=== PATIENT | female | born 1980 | race Hispanic/Latino ===

== ENCOUNTER → 2017-11-03 | Outpatient (CLI) | payer BC ==
[~2017-11-03] MED LIST: ATORVASTATIN CA10 MG PO; CELEBREX100 MG PO; CYMBALTA30 MG PO; EDARBYCLOR 40-1 EAC1 PO; FERROUS SU220 MG/5 M PO; GAMMAGARD LIQUI IV; HYDROXYCHLOROQ200 MG PO; LABETALOL HCL100 MG PO; MEDROL4 MG PO; ORENCIA125 MG/1 M SC; SPIRONOLACTONE25 MG PO; TIKOSYN250 MCG PO; VITAMIN D5000 UNIT PEG
--- NOTE | 2017-11-03 15:53 | Diagnostic Imaging Report ---
EXAM: CT Chest WITHOUT contrast 11/03/2017 1:38 PM INDICATION: Cough for 2 weeks. COMPARISON: None TECHNIQUE: Chest was scanned utilizing a multidetector helical scanner from the lung apex through the level of the adrenal glands without administration of IV contrast. Absence of intravenous contrast decreases sensitivity for detection of lymphadenopathy and vascular pathology. Coronal and sagittal reformations were obtained. Routine protocol was performed. IV CONTRAST: None RADIATION DOSE: Total DLP: 506.36 mGy*cm Estimated effective dose: (DLP x 0.014 x size factor) mSv COMPLICATIONS: None FINDINGS: LINES/ TUBES: None. LUNGS AND AIRWAYS: Mild biapical pleural-parenchymal scarring. No focal consolidation masses or nodules. Airways are normal. PLEURA: The pleural spaces are clear. HEART AND MEDIASTINUM: The thyroid gland is normal. No mediastinal, hilar or axillary lymphadenopathy. The heart is normal in size.. There is no pericardial effusion. UPPER ABDOMEN: Limited non-contrast views of the upper abdomen show no abnormality within the visualized liver, spleen, pancreas, or kidneys. The adrenal glands are normal. BONES: No acute osseous abnormality. SOFT TISSUES: Unremarkable. IMPRESSION: No acute thoracic abnormality. No abnormality identified to explain shortness of breath. Signed by: Dr. Marguerite Fajardo M.D. on 11/03/2017 3:49 PM
--- NOTE | 2017-11-04 07:00 | Diagnostic Imaging Report ---
EXAMINATION: CT of the face HISTORY: Acute sinusitis, cough for the last 2 weeks, asthma COMPARISON: None available TECHNIQUE: Multidetector helical axial images were acquired through the face without contrast and were reconstructed in bone and soft tissue algorithms. Images were viewed in multiplanar format. FINDINGS: Bones: Unremarkable. Facial soft tissues: Unremarkable. Paranasal sinuses and drainage pathways: Minimal mucosal inflammatory thickening and partial opacification of the left posterior ethmoidal sinuses. Otherwise the frontal, remaining ethmoid all, maxillary and sphenoid sinuses are clear. The ostiomeatal units, fronto-nasal and spheno-ethmoidal recesses are clear. Orbits contents: Unremarkable. Nasal septum/nasal cavity: S-shaped, with dominant right superior and left inferior deviation. Hypertrophy of the inferior turbinates Anatomic variations: No significant anatomic variations. Dentition: No acute abnormality of the visualized teeth. IMPRESSION: 1. Minimal mucosal inflammatory thickening of the left posterior ethmoidal sinuses, otherwise the paranasal sinuses and drainage pathways are clear. 2. Nasal septal deviation as detailed above. 3. Hypertrophy of the inferior turbinates. Signed by: Dr. Sarah Rodriguez M.D. on 11/04/2017 6:56 AM
== END ==
LOC: CT 13:24
PROVIDERS: ATTEND Internal Medicine Pulmonary Disease
DX: R05 Cough (principal); J01.90 Acute sinusitis, unspecified
CPT/HCPCS: 70486; 71250

== ENCOUNTER 2018-01-26 18:14 | Emergency (ER) | payer BC ==
[~2018-01-26] VITALS: Ht 160 cm; Wt 59.0 kg
--- OUTSIDE RECORDS SUMMARY | 2018-01-26 18:17 | XMS REPORT ---
Author Author [facility] Address Unknown Phone Unavailable Care Team Providers Care Public Employment Mediator Name Role Phone MARYA DELA CRUZ Unavailable Unavailable JARRETT REBOLLAR Unavailable Unavailable ROSEMARIE BAILEY Unavailable Unavailable Problems This patient has no known problems. Allergies, Adverse Reactions, Alerts This patient has no known allergies or adverse reactions. Medications This patient has no known medications. Results Test Description Test Time Test Comments Text Results Atomic Results Result Comments CT CHEST WO [place] [address] Patient Name: NIDHI PAZ MR #: [id number] : 1980 Age/Sex: 37/F Req #: [id number] Adm Physician: Ordered by: MARYA DELA CRUZ MD Report #: [id number] Location: CT Room/Bed: Procedure: [id number] CT/CT CHEST WO Exam Date: 11/03/17 Exam Time: 1340 REPORT STATUS: Signed EXAM: CT Chest WITHOUT contrast 11/03/2017 1:38 PM INDICATION: Cough for 2 weeks. COMPARISON: None TECHNIQUE: Chest was scanned utilizing a multidetector helical scanner from the lung apex through the level of the adrenal glands without administration of IV contrast. Absence of intravenous contrast decreases sensitivity for detection of lymphadenopathy and vascular pathology. Coronal and sagittal reformations were obtained. Routine protocol was performed. IV CONTRAST: None RADIATION DOSE: Total DLP: 506.36 mGy*cm Estimated effective dose: (DLP x 0.014 x size factor) mSv COMPLICATIONS: None FINDINGS: LINES/ TUBES: None. LUNGS AND AIRWAYS: Mild biapical pleural-parenchymal scarring. No focal consolidation masses or nodules. Airways are normal. PLEURA: The pleural spaces are clear. HEART AND MEDIASTINUM: The thyroid gland is normal. No mediastinal, hilar or axillary lymphadenopathy. The heart is normal in size.. There is no pericardial effusion. UPPER ABDOMEN: Limited non-contrast views of the upper abdomen show no abnormality within the visualized liver, spleen, pancreas, or kidneys. The adrenal glands are normal. BONES: No acute osseous abnormality. SOFT TISSUES: Unremarkable. IMPRESSION: No acute thoracic abnormality. No abnormality identified to explain shortness of breath. Signed by: Dr. Marguerite Hilton M.D. on 11/03/2017 3:49 PM Dictated By: ISA HILTON MD, MD [id number] Transcribed By: LAYTON on 11/03/17 1547 COPY TO: MARYA DELA CRUZ MD CT MAXIO FAC/PARANAS WO [place] [address] Patient Name: NIDHI PAZ MR #: [id number] : 1980 Age/Sex: 37/F Req #: [id number] Adm Physician: Ordered by: MARYA DELA CRUZ MD Report #: [id number] Location: CT Room/Bed: Procedure: [id number] CT/CT MAXIO FAC/PARANAS WO Exam Date: 11/03/17 Exam Time: 1340 REPORT STATUS: Signed EXAMINATION: CT of the face HISTORY: Acute sinusitis, cough for the last 2 weeks, asthma COMPARISON: None available TECHNIQUE: Multidetector helical axial images were acquired through the face without contrast and were reconstructed in bone and soft tissue algorithms. Images were viewed in multiplanar format. FINDINGS: Bones: Unremarkable. Facial soft tissues: Unremarkable. Paranasal sinuses and drainage pathways: Minimal mucosal inflammatory thickening and partial opacification of the left posterior ethmoidal sinuses. Otherwise the frontal, remaining ethmoid all, maxillary and sphenoid sinuses are clear. The ostiomeatal units, fronto- nasal and spheno-ethmoidal recesses are clear. Orbits contents: Unremarkable. Nasal septum/nasal cavity: S-shaped, with dominant right superior and left inferior deviation. Hypertrophy of the inferior turbinates Anatomic variations: No significant anatomic variations. Dentition: No acute abnormality of the visualized teeth. IMPRESSION: 1. Minimal mucosal inflammatory thickening of the left posterior ethmoidal sinuses, otherwise the paranasal sinuses and drainage pathways are clear. 2. Nasal septal deviation as detailed above. 3. Hypertrophy of the inferior turbinates. Signed by: Dr. Татьяна Rodriguez M.D. on 11/04/2017 6:56 AM Dictated By: ТАТЬЯНА RODRIGUEZ MD 5 Transcribed By: LAYTON on 11/04/17655 COPY TO: MARYA DELA CRUZ MD MRI KNEE LEFT WO [place] [address] Patient Name: NIDHI PAZ MR #: [id number] : 1980 Age/Sex: 36/F Req #: [id number] Adm Physician: Ordered by: REBOLLAR ANDREW DO Report #: [id number] Location: MRI Room/Bed: Procedure: [id number] MRI/MRI KNEE LEFT WO Exam Date: 08/24/17 Exam Time: 1638 REPORT STATUS: Signed TECHNIQUE: Magnetic resonance imaging of the LEFT KNEE was performed WITHOUT injected contrast. HISTORY: Knee pain COMPARISON: None available. FINDINGS: LIGAMENTS AND TENDONS: ACL: Intact PCL: Intact Collateral ligaments: Intact Iliotibial band: Unremarkable Popliteal tendon: Intact Extensor mechanism: Quadriceps and patellar tendons intact. Mild edema in Hoffa's fat. JOINT: Menisci: Medial: Undersurface fraying of the body and posterior horn without discrete tear Lateral: Intact without tear. Articular Cartilage: Medial Compartment: Partial thickness cartilage loss Lateral Compartment: Partial thickness cartilage loss Patellofemoral Compartment: Partial thickness cartilage loss Joint Fluid: The amount of fluid within the joint is within physiologic limits. BONE: No focal or infiltrative bone marrow replacing abnormality. No acute fracture. SOFT TISSUES: Otherwise, unremarkable. IMPRESSION: Medial meniscus undersurface fraying without discrete tear. Mild tricompartmental cartilage loss. Signed by: Dr. Jarrett Nino M.D. on 7:16 AM Dictated By: JARRETT NINO MD 5 Transcribed By: LAYTON on 08/25/17715 COPY TO: JARRETT REBOLLAR DO MRI SHOULDER LEFT WO [place] [address] Patient Name: NIDHI PAZ MR #: [id number] : 1980 Age/Sex: 36/F Req # : [id number] Adm Physician: Ordered by: REBOLLAR ANDREW DO Report #: [id number] Location: MRI Room/Bed: Procedure: [id number] MRI/MRI SHOULDER LEFT WO Exam Date: 08/24/17 Exam Time: 1615 REPORT STATUS: Signed TECHNIQUE: Magnetic resonance imaging of the LEFT SHOULDER was performed WITHOUT injected contrast. COMPARISON: None available. HISTORY: Left shoulder pain FINDINGS: MUSCLES AND TENDONS: Rotator Cuff: Tendons: Supraspinatus: Intact Infraspinatus: Intact Teres Minor: Intact Subscapularis: Intact Muscles: No focal muscle atrophy. Biceps Tendon: The long head of the biceps tendon is intact and within the intertubercular groove. GLENOHUMERAL JOINT: Glenoid Labrum: No displaced tear. Articular Cartilage: No focal defect. AC JOINT AND ACROMION: Minimal hypertrophic degenerative changes of the acromioclavicular joint. Mild downsloping without spur formation. BONE: No specific evidence of a focal or infiltrative bone marrow replacing abnormality. No acute fracture. SOFT TISSUES: Otherwise, the soft tissues appear unremarkable. IMPRESSION: Intact rotator cuff and labrum Signed by: Dr. Jarrett Nino M.D. on 08/25/2017 7:18 AM Dictated By: JARRETT NINO MD 7 Transcribed By: ALYTON on 08/25/17717 COPY TO: JARRETT REBOLLAR DO MRI BRAIN WOW [place] [address] Patient Name: NIDHI PAZ MR #: [id number] : 1980 Age/Sex: 36/F Req #: [id number] Adm Physician: Ordered by: ROSEMARIE BAILEY M.D. Report #: [id number] Location: MRI Room/Bed: Procedure: [id number] MRI/MRI BRAIN WOW Exam Date: 06/18/17 Exam Time : 0805 REPORT STATUS: Signed History: Possible MS. Arm and leg pain Comparison studies: MRI of the cervical and lumbar spine Technique: Pre- contrast: Sagittal T2; axial T1-IR, MPGR, DWI, T2 FLAIR Post-contrast: axial and coronal T1. Intravenous contrast: 6 cc of Gadavist. Findings: Scalp: No abnormal signal. No masses. Bone marrow: Normal in signal intensity. Brain sulci: Appropriate for age. Ventricles: Normal in size . No hydrocephalus. Extra-axial: No masses, fluid collections or hemorrhage. Parenchyma: T2/FLAIR cortical subcortical hyperintensity at the right inferior temporal gyrus/anterior insula with associated volume loss and without enhancement. Few punctate T-2/flair hyperintensities of the periventricular and deep matter, nonspecific. No masses, hemorrhage or acute vascular insults. No enhancing abnormalities. Suprasellar region: No abnormalities. Craniocervical junction: No abnormalities. Patent foramen magnum. No Chiari one malformation.. Vessels: Normal flow-voids in the arteries and sinuses. Incidental findings: None IMPRESSION: 1. Focal cortical subcortical encephalomalacia at the left inferior frontal gyrus/anterior insula, secondary to remote insult. 2. Nonspecific punctate T-2/flair hyperintensities of the supra tentorial white matter, this could be seen in chronic migraines, early demyelination or nonspecific vasculitis. No typical appearance for multiple sclerosis. Signed by: DR Daniel Winn M.D. on 06/18/2017 2:29 PM Dictated By: DANIEL JEWELL MD 142 Transcribed By: LAYTON on 06/18/17 1429 COPY TO: ROSEMARIE BAILEY M.D. MRI SPINE CERVICAL WOW [place] [address] Patient Name: NIDHI PAZ MR #: [id number] : 1980 Age/Sex: 36/F Req #: [id number] Adm Physician: Ordered by: ROSEMARIE BAILEY M.D. Report #: [id number] Location: MRI Room/Bed: ____ Procedure: [id number] MRI/MRI SPINE CERVICAL WOW Exam Date: 06/02/17 Exam Time: 824 REPORT STATUS: Signed Examination: MRI SPINE CERVICAL WITHOUT AND WITH CONTRAST History: Left arm pain. Comparison studies: None Technique: Sagittal T1, T2 and IR, axial T2 and axial gradient echo; postcontrast axial and sagittal T1 fat-saturated. Intravenous contrast: 6mL Gadavist. Findings: Alignment: Normal lordosis. No scoliosis. Cervicomedullary junction: No abnormalities. Patent foramen magnum. Soft tissues: No T2 hyperintense inflammatory changes. Spinal cord: Normal in size and signal from the foramen magnum through T1. Vertebrae: No fractures, infection or neoplasm. Enhancement: No abnormal enhancement. Degenerative changes: C1-C2 through C4-C5: No abnormalities. C5-C6: Small central disc protrusion. No foraminal or canal stenosis. C6-C7 and C7-T1: No abnormalities. IMPRESSION: 1. Mild degenerative disc at C5-C6. 2. No foraminal or canal stenosis. Signed by: Dr. Brittaney Martinez M.D. on 06/02/2017 10:53 AM Dictated By: BRITTANEY WOLF MD 1053 Transcribed By: LAYTON on 06/02/17 1053 COPY TO: ROSEMARIE BAILEY M.D. MRI SPINE LUMBAR WOW [place] [address] Patient Name: NIDHI PAZ MR #: [id number] : 1980 Age/Sex: 36/F Req # : [id number] Adm Physician: Ordered by: ROSEMARIE BAILEY M.D. Report # : [id number] Location: MRI Room/Bed: Procedure: [id number] MRI/MRI SPINE LUMBAR WOW Exam Date: 06/02/17 Exam Time: 824 REPORT STATUS: Signed Examination: MRI SPINE LUMBAR WITHOUT AND WITH CONTRAST History: Right leg pain and numbness. Comparison studies: None Technique: Pre-contrast: Sagittal and axial T2 , sagittal T1 and IR, axial spin density oblique. Post contrast: Axial and sagittal fat saturated sequences. Intravenous contrast: 6 mL of Gadavist. Findings: Number of lumbar vertebral bodies:Five. Alignment: Normal lordosis. No scoliosis. Soft tissues: No T2 hyperintense inflammatory changes. Paraspinal muscles: No signal abnormalities. Well-preserved. No atrophic changes Lower thoracic cord: Normal in signal and morphology. The tip of the conus is at T12-L1. Cauda equina: No masses. No arachnoiditis. Enhancement: No abnormal enhancement. Vertebrae: No compression fractures, infection or neoplasm. Degenerative changes: L1-L2 through L5-S1: No abnormalities IMPRESSION: Normal contrast MRI of the lumbar spine. Signed by: Dr. Brittaney Martinez M.D. on 06/02/2017 10:49 AM Dictated By: BRITTANEY WOLF MD 1049 Transcribed By: LAYTON on 9 COPY TO: ROSEMARIE BAILEY M.D.
[2018-01-26] MEDS ORDERED: IBUPROFEN 600 MG TAB PO STA (18:32)
[2018-01-26] MEDS ORDERED: IBUPROFEN 600 MG TAB ONE (18:37)
[2018-01-26 19:02] LABS: CLARITY,URINE SL CLOUDY (CLEAR); COLOR,URINE YELLOW (YELLOW); LEUKOCYTE ESTERASE ,URINE TRACE (NEGATIVE); NITRITE,URINE NEGATIVE (NEGATIVE); PROTEIN,URINE DIPSTICK 1+ (NEGATIVE)
[2018-01-26 19:03] LABS: BILIRUBIN,URINE 1+ (NEGATIVE); KETONES,URINE 3+ (NEGATIVE); URINE UROBILINOGEN 4 mg/dL (0.2 - 1)
[2018-01-26 19:16] LABS: AMORPHOUS SEDIMENT,URINE MODERATE (FEW); BACTERIA,URINE MODERATE /HPF; EPITHELIAL CELLS,URINE MANY /LPF
--- NOTE | 2018-01-26 19:22 | Diagnostic Imaging Report ---
EXAMINATION: CHEST 2 VIEWS INDICATION: \S\fever \[id number] \S\1900 COMPARISON: Chest CT dated 11/03/2017 FINDINGS: PA and lateral views TUBES and LINES: None. LUNGS: Lungs are well inflated. Medial right lower lung field hazy opacification. PLEURA: No pleural effusion or pneumothorax. HEART AND MEDIASTINUM: The cardiomediastinal silhouette is unremarkable. BONES AND SOFT TISSUES: No acute osseous lesion. Soft tissues are unremarkable. UPPER ABDOMEN: No free air under the diaphragm. IMPRESSION: Medial right lower lung field hazy opacification, suspicious for right middle lobe pneumonia. Signed by: Dr. Kris Nina MD on 01/26/2018 7:18 PM
[2018-01-26] MEDS ORDERED: SODIUM CHLORIDE 0.9% 1000ML 1,000 ML IV STA ×3 (20:16→23:20)
[2018-01-26] MEDS ORDERED: CEFTRIAXONE SOD 1 GM VIAL IV SCH ×2 (20:30→20:45)
[2018-01-26 20:41] LABS: BASOPHILS % 0.7 % (0.0-1.0); HEMOGLOBIN 13.8 g/dL (12.0-16.0); LYMPHOCYTES # (AUTO) 0.6 (1.0-3.2); LYMPHOCYTES % 13.9 % (18.0-39.1); MEAN CORPUSCULAR HEMOGLOBIN 29.2 pg (28-32); MEAN CORPUSCULAR HGB CONC 34.5 g/dL (31-35); MEAN CORPUSCULAR VOLUME 84.6 fL (81-99); MONOCYTES # (AUTO) 0.4 (0.2-0.8); MONOCYTES % 9.5 % (4.4-11.3); NEUTROPHILS # (AUTO) 3.4 (2.1-6.9); NEUTROPHILS % 75.5 % (38.7-80.0); PLATELET COUNT 198 x10e3/uL (140-360); RED BLOOD COUNT 4.73 x10e6/uL (3.6-5.1); RED CELL DISTRIBUTION WIDTH 11.8 % (11.7-14.4)
[2018-01-26 20:51] LABS: INR 1.15; PARTIAL THROMBOPLASTIN TIME 24.3 seconds (23.8-35.5); PROTHROMBIN TIME 13.8 seconds (11.9-14.5)
[2018-01-26 20:58] LABS: ALANINE AMINOTRANSFERASE 49 IU/L (0-55); ALBUMIN 3.6 g/dL (3.5-5.0); ALBUMIN/GLOBULIN RATIO 0.9 (0.8-2.0); ALKALINE PHOSPHATASE 114 IU/L (40-150); ANION GAP 13.9 mmol/L (8-16); BLOOD UREA NITROGEN 7 mg/dL (7-26); BUN/CREATININE RATIO 10 (6-25); CARBON DIOXIDE 21 mmol/L (22-29); CHLORIDE 103 mmol/L (98-107); CREATININE, SERUM 0.69 mg/dL (0.57-1.11); EST GLOMERULAR FILTRATION RATE > 60 ML/MIN (60-); GLUCOSE 105 mg/dL (74-118); POTASSIUM 3.9 mmol/L (3.5-5.1); SODIUM 134 mmol/L (136-145)
--- NOTE | 2018-01-26 21:16 | Diagnostic Imaging Report ---
EXAMINATION: Head CT HISTORY: Headaches, fever, stiff neck for one week COMPARISON: Brain MRI of 06/18/2017 TECHNIQUE: Multidetector axial images were obtained without contrast from the foramen magnum to the vertex . The images were reconstructed using brain and bone algorithms. Thin section brain images were reformatted into coronal and sagittal planes. Motion/streaking artifact limits the evaluation of the skull base and posterior cranial fossa. FINDINGS: Parenchyma: 1. Again seen focal area of encephalomalacia/gliosis in the right anterior insula and deep frontal white matter, likely sequela from remote insult such as ischemia, infection or trauma. 2. A few scattered mostly subcortical white matter hypodensities nonspecific and may be related to migraine, chronic cortical ischemic changes, but likely vasculitis or demyelinating disorder, grossly unchanged from brain MRI 06/18/2017. 3. No mass or hemorrhage. No CT evidence of acute territorial vascular insult. Extra-axial spaces:No abnormal density. No extra-axial fluid collections Brain volume: Normal for age. Ventricles: No hydrocephalus or displacement. Arteries: No density suggestive of thrombus. Dural sinuses: No abnormal density. Extra-axial spaces: No abnormal density. Foramen magnum: No mass, Chiari malformation, or basilar invagination. Sella: No obvious mass. Paranasal/mastoid sinuses: Imaged portions unremarkable. Skull/Scalp: No lytic or blastic lesions. No fractures. IMPRESSION: 1. No acute intracranial mass, hemorrhage or cortical infarcts. 2. Unchanged right insular/frontal encephalomalacia when compared to brain MRI 06/18/2017. 3. Grossly unchanged few scattered white matter hypodensities. Signed by: Dr. Sarah Rodriguez M.D. on 01/26/2018 9:13 PM
[2018-01-26] MEDS ORDERED: LIDOCAINE HCL 1% LOCAL INJ 20 ML VIAL ONE (23:06)
[2018-01-26] MEDS ORDERED: PROMETHAZINE HCL (IM) 25 MG/ML VIAL ONE (23:18)
[2018-01-26] MEDS ORDERED: SODIUM CHLORIDE 0.9% 1000ML 1,000 ML ONE (23:18)
[2018-01-26] MEDS ORDERED: HYDROMORPHONE 1MG/1ML INJ ONE (23:18)
[2018-01-26] MEDS ORDERED: HYDROMORPHONE 1MG/1ML INJ IV STA (23:20)
[2018-01-26] MEDS ORDERED: PROMETHAZINE HCL (IM) 25 MG/ML VIAL IV STA (23:20)
[2018-01-27 00:03] LABS: APPEARANCE,CSF CLEAR (CLEAR); COLOR,CSF COLORLESS (COLORLESS); TUBE NUMBER 3
[2018-01-27 00:04] LABS: WHITE BLOOD CELL,CSF 1 cells/uL (0-5)
[2018-01-27 02:41] VITALS: BP 112/61
== END 2018-01-27 02:47 | disposition home or self-care (01) ==
LOC: ER 18:14
DX: R51 Headache (principal); R11.0 Nausea; B34.9 Viral infection, unspecified; F32.9 Major depressive disorder, single episode, unspecified
CPT/HCPCS: 36415; 62270; 70450; 71046; 80053; 81001; 81025; 82945; 83518; 85025; 85610; 85730; 86403; 87070 ×2; 87205; 87400; 89051; 99284; J0696; J1170; J2001; J2550; J7030